=== PATIENT | female | born 1975 | race Caucasian/White ===

== ENCOUNTER 2023-08-09 09:06 | Day surgery (SDC) | payer OTHER ==
[2023-08-09 09:27] LABS: HCG URINE TEST NEGATIVE (NEGATIVE)
[2023-08-09 09:53] VITALS: RESP 16
[2023-08-09] MEDS ORDERED: Lactated Ringers 1,000 ML IV ONE (09:54)
[2023-08-09] MEDS: Lactated Ringers 1,000 ML IV SCH (09:54)
[2023-08-09] MEDS ORDERED: Versed 2 MG/2 ML Injection ONE (11:35)
[2023-08-09] MEDS ORDERED: DIPRIVAN 200 MG/20 ML IV ONE ×2 (11:35→11:44)
[2023-08-09 12:26] VITALS: O2SAT 100
[2023-08-09 12:38] VITALS: BP 112/75; PULSE 63; TEMP 97.6
--- NOTE | 2023-08-09 14:52 | OP ---
SURGERY DATE/TIME: 08/09/2023 1137 PREOPERATIVE DIAGNOSIS: Due for colorectal cancer screening, second degree relative with colon cancer. POSTOPERATIVE DIAGNOSIS: Colon polyps. PROCEDURE: Colonoscopy with polypectomy. SURGEON: Jorge L Ulloa M.D. HISTORY: The patient is a 47-year-old female with a second degree relative with colon cancer. No prior colonoscopy and presents for routine screening. Discussed with the patient and she elected to proceed. FINDINGS: A 7 mm and 3 mm hepatic flexure sessile polyp. DESCRIPTION OF PROCEDURE: The patient brought to endoscopy suite and routinely positioned, prepared and time out performed. The external examination is normal. The digital rectal exam is normal. Colonoscope is inserted and advanced to the cecum confirmed by the appendiceal orifice and ileocecal valve. The preparation is Aronchick excellent preparation. Greater than six minute withdrawal time is performed. At the hepatic flexure there is a 7 mm probably sessile polyp that is removed with hot snare. There is also a 3 mm adenomatous appearing sessile polyp removed with forceps completely sent together. The withdrawal was otherwise normal. Retroflexion normal. The patient tolerated the procedure well and taken to recovery in stable condition. RECOMMENDATIONS: Follow up phone appointment in around two weeks to discuss pathology results. She will likely be set up for a three to five year colonoscopy for surveillance.
== END 2023-08-09 12:46 | disposition home or self-care (01) ==
LOC: SDC 09:06
PROVIDERS: ATTEND Surgery
DX: Z12.11 Encounter for screening for malignant neoplasm of colon (principal); Z80.0 Family history of malignant neoplasm of digestive organs; D12.3 Benign neoplasm of transverse colon
CPT/HCPCS: 81025; 93005; J2250; J2704

== ENCOUNTER 2024-11-25 21:37 | Emergency (ER) | payer BC ==
[2024-11-25 22:06] VITALS: RESP 18; TEMP 97.9
--- NOTE | 2024-11-25 22:26 | ERPHSYRPT ---
- History of Present Illness Time Seen by Provider: 11/25/24 22:23 Source: patient Exam Limitations: no limitations Patient Subjective Stated Complaint: c/o head laceration Triage Nursing Assessment: patient brought to ED by with c/o 3cm head laceration. patient was washing her dogs and slipped backwards on the hardwood floor. patient hit the back of her on the floor and doorjam. patient is not bleeding at this time, wound clean, dry, and open to air. patient has a 3cm laceration in length. vitals wnl, afebrile, gait steady, denies N/V, PERRLA present, doesn't appear to be in any distress at this time Physician History: Patient is a 49-year-old female history of hypothyroidism hyperlipidemia, GERD anxiety depression presents to our ED with her for evaluation of a head laceration. Patient states she was bathing her dogs when she slipped backwards and fell onto hardwood floor. Patient has a 3 cm laceration to the back of her head. Injury occurred just prior to arrival. No active bleeding. No LOC no neck pain. Cervical spine cleared clinically. Patient is not on a blood thinner. at bedside. They voiced no other complaints or concerns at this time. Portions of this note were created with voice recognition technology. There may be grammatical, spelling, punctuation or sound alike errors Timing/Duration: today Severity: moderate Modifying Factors: Improves With: nothing Associated Symptoms: denies symptoms Allergies/Adverse Reactions: cephalexin [From Keflex] Allergy (Verified 11/25/24 21:51) Rash fenofibrate Allergy (Verified 11/25/24 21:51) Rash Home Medications: Fluoxetine HCl [Prozac] 40 mg PO DAILY 07/20/23 [History] Levothyroxine Sodium [Tirosint] 50 mcg PO DAILY 07/20/23 [History] Liothyronine Sodium 5 mcg PO DAILY 07/20/23 [History] Omeprazole 20 mg PO DAILY 07/20/23 [History] Rosuvastatin Calcium 40 mg PO DAILY 07/20/23 [History] icosapent ethyL [Vascepa] 1 gm PO BID 07/20/23 [History] Norethindrone-E.estradiol-Iron [Junel Fe 1 mg-20 Mcg Tablet] 1 tab PO DAILY 11/25/24 [History] Semaglutide [Wegovy] 1 mg PO DAILY 11/25/24 [History] Hx Tetanus, Diphtheria Vaccination/Date Given: No Hx Influenza Vaccination/Date Given: No Hx Pneumococcal Vaccination/Date Given: No Travel Risk - International Travel Have you traveled outside of the country in past 3 weeks: No - Emerging Infectious Disease Are you exhibiting symptoms associated with any current EIDs: No - Review of Systems All Other Systems: Reviewed and Negative - Past Medical History Pertinent Past Medical History: Yes Neurological History: No Pertinent History ENT History: No Pertinent History Cardiac History: High Cholesterol, Other Respiratory History: No Pertinent History Endocrine Medical History: Hypothyroidism Musculoskeletal History: No Pertinent History GI Medical History: GERD History: No Pertinent History Psycho-Social History: Anxiety, Depression Female Reproductive Disorders: No Pertinent History Other Medical History: TACHYCARDIA - Past Surgical History Past Surgical History: Yes Neuro Surgical History: No Pertinent History Cardiac: No Pertinent History Respiratory: No Pertinent History Gastrointestinal: No Pertinent History Genitourinary: Other Musculoskeletal: No Pertinent History Female Surgical History: Other Other Surgical History: PARTIAL THYROIDECTOMY FOR NODULES,BREAST REDUCTION,KIDNEY STENT - Female History Hx Last Menstrual Period: 3 weeks ago Hx Now: No - Social History Smoking Status: Never smoker Exposure to second hand smoke: No Drug Use: none - Social Determinants of Health Will the patient participate in the screening: Yes Do you worry about a steady place to live?: No Do you have any problems with any of the following?: No known problems In the past 12 months,have you had to go without utilities?: No Transportation Issues: No Has anyone in your support network made you feel unsafe?: No Have you or anyone in your house had to go w/o enough food: No - Nursing Vital Signs Nursing Vital Signs: Initial Vital Signs Temperature 97.9 F 11/25/24 21:51 Pulse Rate 83 11/25/24 21:51 Respiratory Rate 18 11/25/24 21:51 Blood Pressure 123/85 11/25/24 21:51 O2 Sat by Pulse Oximetry 97 11/25/24 21:51 Pain Scale Pain Intensity 1 - Physical Exam General Appearance: no apparent distress, alert, other (No skull depression observed) Eye Exam: PERRL/EOMI, eyes nml inspection Ears, Nose, Throat Exam: normal ENT inspection, moist mucous membranes Neck Exam: normal inspection, full range of motion Respiratory Exam: normal breath sounds, lungs clear, airway intact, No respiratory distress Cardiovascular Exam: regular rate/rhythm Gastrointestinal/Abdomen Exam: soft, normal bowel sounds, No tenderness, No mass Back Exam: normal inspection, normal range of motion, No CVA tenderness, No vertebral tenderness Extremity Exam: normal inspection, normal range of motion, pelvis stable Neurologic Exam: alert, oriented x 3, cooperative, normal mood/affect, sensation nml, No motor deficits Skin Exam: normal color, warm, dry, other (3 cm posterior scalp laceration with superimposed scalp contusion. No obvious hematoma), No rash Lymphatic Exam: No adenopathy SpO2 Interpretation: normal SpO2: 97 O2 Delivery: Room Air Procedures - Laceration/Wound Repair Parietal Time of Procedure: 23:15 Wound Location: head (Posterior parietal scalp) Wound Length (cm): 3 Wound's Depth, Shape: superficial Wound Explored: clean Irrigated: Yes Hibiclens Prep: Yes Wound Debrided: No debridement indicated Wound Repaired With: [place] Number of Sutures: 4 Sterile Dressing Applied?: No Splint Applied?: No Sling Applied?: No Progress: Patient tolerated procedure well. No intra or postprocedural complications. 11/25/24 23:22 - Course Nursing assessment & vital signs reviewed: Yes - CT Exams Head CT Interpretation: Tele-radiologist Report (CT head negative for acute intracranial pathology. No fractures) Ordered Tests: Active Orders 24 hr Category Date Time Status HEAD WITHOUT CONTRAST [CT] Stat Exams 11/25/24 22:48 Completed Medication Summary Discontinued Medications Generic Name Dose Route Start Last Admin Trade Name Malcolmq PRN Reason Stop Dose Admin Acetaminophen 1,000 mg 11/25/24 23:20 11/25/24 23:24 Acetaminophen 500 Mg Tablet PO 11/25/24 23:21 1,000 mg STAT STA Administration Acetaminophen Confirm 11/25/24 23:23 Acetaminophen 500 Mg Tablet Administered 11/25/24 23:24 Dose 1,000 mg .ROUTE .[employer] - Progress Progress: improved Progress Note: Patient is a 49-year-old female history of hypothyroidism hyperlipidemia, GERD anxiety depression presents to our ED with her for evaluation of a head laceration. Physical exam reveals a posterior parietal scalp laceration measuring 3 cm with superimposed contused soft tissue.. No active bleeding. Skin edges are well-approximated. Wound was irrigated by staff. We discussed details regarding local anesthesia. Patient declined the lidocaine scalp injection. We placed 4 lena. Patient tolerated procedure well. No intra or postprocedural complications. Patient requested pain medication after procedure. She received a gram of Tylenol. Lena may be removed in 7 days. I explained to patient that CT head was not indicated based on clinical decision rules for CT and adult head injury however patient requested a CT head. CT head completed. No acute intracranial pathology observed. History obtained from patient. Differential diagnosis is scalp laceration, scalp contusion, skull fracture Portions of this note were created with voice recognition technology. There may be grammatical, spelling, punctuation or sound alike errors Complexity of problem addressed is moderate acute complicated. No critical care time. Complex of data reviewed and analyzed is moderate. Test ordered test reviewed results analyzed and correlated clinically with history and physical exam. Risk of complication at risk of morbidity/mortality of patient management is low. Vital stable. Time spent to discharge patient is approximately 10 minutes. Plan of care established for shared decision making. No social determinants of health present to impede follow-up. Portions of this note were created with voice recognition technology. There may be grammatical, spelling, punctuation or sound alike errors 11/25/24 23:26 Counseled pt/family regarding: diagnosis, need for follow-up, rad results - Departure Departure Disposition: Home Clinical Impression: Fall, Scalp laceration, Scalp contusion Condition: Stable Critical Care Time: No Referrals: DIMITRI RIDER, DIAL PRINTER [Primary Care Provider, [facility]] - Follow up/PCP as directed Additional Instructions: Discharge/Care Plan CORBIN LEMON GUILLERMINA was seen on 11/25/24 in the Emergency Room. The patient was counseled regarding Diagnosis,Lab results, Imaging studies, need for follow up and when to return to the Emergency Room. Prescriptions given: Discharge Note I have spoken with the patient and/or caregivers. I have explained the patient's condition, diagnosis and treatment plan based on the information available to me at this time. I have answered the patient's and/or caregiver's questions and addressed any concerns. The patient and/or caregivers have as good understanding of the patient's diagnosis, condition and treatment plan as can be expected at this point. The vital signs have been stable. The patient's condition is stable and appropriate for discharge from the emergency department. The patient will pursue further outpatient evaluation with the primary care physician or other designated or consulting physician as outlined in the discharge instructions. The patient and/or caregivers are agreeable to this plan of care and follow-up instructions have been explained in detail. The patient and/or caregivers have received these instruction. The patient/and or caregivers are aware that any significant change in condition or worsening of symptoms should prompt an immediate return to this or the closest emergency department or call 911.
[2024-11-25] MEDS ORDERED: TYLENOL EXTRA STRENGTH 500 MG ONE (23:23)
[2024-11-25] MEDS: TYLENOL EXTRA STRENGTH 500 MG PO STA (23:24)
[2024-11-25 23:26] VITALS: O2SAT 97
--- NOTE | 2024-11-26 00:20 | XRAY ---
CLINICAL HISTORY: trauma COMPARISON: None. TECHNIQUE: Axial non-contrast CT scan of the brain was performed from the skull base to the high parietal region. One of the following dose reduction techniques was utilized for this exam: automated exposure control, adjustment of the mA and/or kV according to patient size, or use of iterative reconstruction. FINDINGS: Brain Parenchyma: There is normal attenuation of the cerebral hemispheres, cerebellum, and brainstem. There is no evidence of acute infarct, hemorrhage, or mass effect. There are no abnormal areas of hypoattenuation or hyperattenuation. Ventricular System: The ventricles are normal in size and configuration. There is no evidence of hydrocephalus or ventricular enlargement. Subarachnoid Spaces: The sulci and cisterns are normal. There is no evidence of subarachnoid hemorrhage or extra-axial fluid collections. Cerebellum and Brainstem: There are no masses, lesions, or areas of abnormal density. Orbits: There is normal appearance of the globes, optic nerves, and extraocular muscles. There is no evidence of orbital masses or abnormal density. Sinuses: The paranasal sinuses are clear. There is no evidence of sinusitis or mucosal thickening. Mastoid Air Cells: The mastoid air cells are clear. There is no evidence of mastoiditis. Skull: The skull demonstrates normal morphology. IMPRESSION: There is no evidence of calvarial fracture or intracranial hematoma. Electronically Signed by: Troy Noonan MD. (11/26/2024 00:19:24 EDT)
[2024-11-26 00:37] VITALS: BP 134/92; PULSE 77
== END 2024-11-26 00:36 | disposition home or self-care (01) ==
LOC: ED 21:37
DX: S01.01XA Laceration without foreign body of scalp, initial encounter (principal); W01.0XXA Fall on same level from slipping, tripping and stumbling without subsequent striking against object, initial encounter; Y93.K3 Activity, grooming and shearing an animal; Z79.85 Long-term (current) use of injectable non-insulin antidiabetic drugs; Z79.899 Other long term (current) drug therapy